=== PATIENT | female | born 1995 | race Caucasian/White ===

== ENCOUNTER 2023-12-28 11:14 | Emergency (ER) | payer OTHER, SELFPAY ==
[2023-12-28 11:16] VITALS: BP 112/76
[2023-12-28 12:09] VITALS: BMI 25.2
--- NOTE | 2023-12-28 12:18 | ED.GENMED ---
History of Present Illness
General
Chief Complaint: Abdominal Symptoms
Source: patient and family
Exam Limitations: none
Time Seen by Provider: 12/28/23 11:36
Nursing documentation reviewed up to this point in time: agreed with
History of Present Illness
History of Present Illness:
Patient is a 28-year-old female presents to the emergency department with liquidy diarrhea has been ongoing for the past 3 days. Patient had at least 10 episodes this morning prior to coming to the ER. Patient denies any hematochezia, melena or
mucus. Patient states it is liquidy and explosive. 4 days ago the patient thought maybe she overdid it on magnesium oxide supplement. Patient was on antibiotics a week ago and 1 week ago had sushi. Patient denies travel history or anyone else at
home ill. Patient is nauseous without vomiting. Patient denies abdominal pain but feels mildly bloated. Patient denies fever or chills. Patient's last period was 3 weeks ago. Patient has been taking Bentyl and Imodium without improvement.
Past History
Past History
ED Past Medical History: Asthma and GERD
Social History
Tobacco: Non-smoker
Review of Systems
Review of Systems
All Other Systems: ROS reviewed and negative except as documented in HPI and ROS
Constitutional: Denies fever or chills
EENT: Reports no symptoms
Respiratory: Reports no symptoms
Cardiac: Reports no symptoms
ABD/GI: Reports diarrhea; Denies abdominal pain, nausea, vomiting, bloody stools, black stools or anorexia
: Reports no symptoms
Musculoskeletal: Reports no symptoms
Skin: Reports no symptoms
Neurological: Reports no symptoms
Hematologic/Lymphatic: Reports no symptoms
Psychiatric: Reports no symptoms
Phy Exam
Physical Exam
Physical Exam:
Physical Exam
General: No apparent distress, alert and appropriate, well nourished, mildly dry mucous
HENT: Normocephalic, supple with no lymphadenopathy, no thyromegaly
Eyes: Clear sclera, conjuctiva without injection
Heart: Regular rhythm and rate. No S3, S4. No murmur. No NVD, bruit
Lungs: No respiratory distress, no stridor, lung sounds clear and equal bilaterally, chest wall symmetrical and nontender
Abdomen: Soft, nontender, no organomegaly, no CVA tenderness, BS good
Neuro: Alert and oriented x 3, CN II - XII intact, no motor focality, no cerebellar dysfunction
Skin: no rash
Psychiatric: well kept. interactive and cooperative
Extremities: No edema, cyanosis, tenderness, Good and equal peripheral pulses.
Course
Orders/Labs/Results
Orders:
Orders
12/28/23 11:50
0.9% Sodium Chloride 1000 ml [Nss] 1,000 ml IV BOLUS
12/28/23 11:51
Test Result ONCE
12/28/23 12:16
Complete Blood Count/With Diff Urgent
Comprehensive Metabolic Panel Urgent
HCG, Serum Qualitative Screen Urgent
12/28/23 12:33
STOOL [C difficile Antigen & Toxins] Urgent
[facility] Source: Feces/Stool
Specimen Description:
Date Specimen was Collected: 12/28/23
Time Specimen was Collected: 12:31
Stool Culture Urgent
[facility] Source: Feces/Stool
Specimen Description:
Date Specimen was Collected: 12/28/23
Time Specimen was Collected: 12:31
Stool For WBC Urgent
[facility] Source: ST
Specimen Description:
Date Specimen was Collected: 12/28/23
Time Specimen was Collected: 12:31
Abnormal Lab Results
12/28/23
12:16
WBC 3.1 L 10^3/uL
(4.8-10.8)
RBC 3.69 L 10^6/uL
(4.20-5.40)
Hgb 11.6 L g/dL
(12.0-16.0)
Hct 32.0 L %
(37.0-47.0)
MCH 31.4 H pg
(27.0-31.0)
Absolute Lymphs (auto) 0.8 L 10^3/uL
(1.2-3.4)
Monocytes % 14.4 H %
(1.7-9.3)
Sodium 132 L mmol/L
(135-145)
BUN 4 L mg/dl
(7-17)
Total Protein 6.2 L g/dl
(6.3-8.2)
12/28/23 12:16
12/28/23 12:16
Vital Signs
Initial and Last Documented VS:
Initial Vital Signs
Temp Pulse Resp BP Pulse Ox
99.1 F 77 16 112/76 100
12/28/23 11:16 12/28/23 11:16 12/28/23 11:16 12/28/23 11:16 12/28/23 11:16
Last Documented Vital Signs
Temp Pulse Resp BP Pulse Ox
99.1 F 76 18 95/72 98
12/28/23 11:16 12/28/23 13:46 12/28/23 13:46 12/28/23 13:46 12/28/23 13:46
*Pulse Oximetry
Patient hypoxic: no
*EKG
Interpreted by ED Provider?: NA
*Can Stacker Interpretation
Rate: Can Stacker- N/A
*Critical Care Note
Total Time (30-74mins, 75-104mins- exclusive of procedures): Not Applicable
Update Note
Update Note:
Patient is negative for C. difficile. Will have the patient continue Imodium and add in Metamucil.
ED Attending Note
-
Portions of this chart may have been created with voice recognition software.� Occasional wrong word or��sound alike� substitutions may have occurred due to the inherent limitations of voice recognition software.
Discharge Plan
Departure
Patient Disposition: Home (Routine Discharge)
Date of Disposition: 12/28/23
Time of Disposition: 14:19
Patient with high blood pressure during this ER visit?: No
Condition: Good
Covid-19: Not Applicable
Discharge Problem:
Diarrhea, Dehydration
Instructions: Dehydration, Adult (DC), Brooke Diet
Referrals:
Rich Ramos MD [Family Provider] - Follow up in 2-3 days
Activity Restrictions/Additional Instructions:
Continue Imodium and Bentyl. Use Metamucil at least once a day if not twice. Make sure to drink plenty of fluids. Return if developing abdominal pain or fevers.
Interventions
Interventions:
*Risk Screen - Suicide Last Done: 12/28/23 12:28
*General Assessment Last Done: 12/28/23 12:28
*Neglect/Abuse Screening Last Done: 12/28/23 12:28
ED- Fall Risk Assessment Last Done: 12/28/23 12:30
*ED COVID-19 Vaccine History Last Done: 12/28/23 12:28
IW-Nnapuj-Kihgzhnp[facility] Assessment Last Done: 12/28/23 12:30
Discharge Date and Time
Print Language: HUNGARIAN
[2023-12-28] MEDS: NSS 1000 IV (12:19)
[2023-12-28 12:28] LABS: % Basophils 0.3 % (0-2); % Eosinophils 2.2 % (0-6); % Lymphocytes 26.8 % (20.5-51.1); % Monocytes 14.4 % (1.7-9.3); % Neutrophils 56.3 % (42.2-75.2); Absolute Eosinophils 0.1 10^3/uL (0-0.7); Absolute Lymphocytes 0.8 10^3/uL (1.2-3.4); Absolute Monocytes 0.5 10^3/uL (0.1-0.6); Absolute Neutrophils 1.8 10^3/uL (1.4-6.5); Hemoglobin 11.6 g/dL (12.0-16.0); Mean Corp Hgb Conc. 36.3 g/dL (33.0-37.0); Mean Corpuscular Hgb 31.4 pg (27.0-31.0); Mean Corpuscular Volume 86.7 fL (81.0-99.0); Mean Platelet Volume 9.6 fL (7.4-10.4); Nucleated Red Blood Cells % 0 %; Platelet Count 162 10^3/uL (130-400); Red Blood Cell Count 3.69 10^6/uL (4.20-5.40); Red Cell Dist. Width 11.9 % (11.5-14.5); White Blood Cell Count 3.1 10^3/uL (4.8-10.8)
[2023-12-28 12:40] LABS: HCG, Serum Qualitative Screen Negative
[2023-12-28 12:43] LABS: ALT (SGPT) 20 U/L (0-35); AST (SGOT) 28 U/L (14-36); Albumin 3.8 g/dl (3.5-5.0); Alkaline Phosphatase 42 U/L (38-126); Blood Urea Nitrogen 4 mg/dl (7-17); Calcium 8.8 mg/dl (8.4-10.2); Carbon Dioxide 23 mmol/L (22-30); Chloride 103 mmol/L (98-107); Estimated Creatinine Clearance 118 ml/min; Glucose 87 mg/dl (70-99); Potassium 3.8 mmol/L (3.5-5.1); Sodium 132 mmol/L (135-145); Total Bilirubin 0.8 mg/dl (0.2-1.3); Total Protein 6.2 g/dl (6.3-8.2); eGFR > 60.00
[2023-12-28 13:46] VITALS: BP 95/72
[2023-12-28 15:04] VITALS: BP 108/73
== END 2023-12-28 15:05 | disposition home or self-care (01) ==
LOC: EMR 11:14
PROVIDERS: EMERGENCY PHYSICIAN Emergency Medicine; FAMILY PHYSICIAN Internal Medicine
DX: R19.7 Diarrhea, unspecified (principal); E86.0 Dehydration
CPT/HCPCS: 99284; 96360; 80053; 84703; 85025; 87045; 87046; 87324; 87427; 87449; 89055

== ENCOUNTER → 2024-01-10 13:37 | Outpatient (REF) | payer OTHER, SELFPAY | LOC: HWRAD 13:37 | PROVIDERS: ATTENDING PHYSICIAN Surgery Vascular Surgery; FAMILY PHYSICIAN Internal Medicine | DX: Q27.8 Other specified congenital malformations of peripheral vascular system (principal); Q25.47 Right aortic arch | CPT/HCPCS: 71275; 74174; Q9967 ==

== ENCOUNTER → 2024-04-10 06:30 | Day surgery (SDC) | payer OTHER, SELFPAY | LOC: GI 06:30 | PROVIDERS: ATTENDING PHYSICIAN Specialist | DX: R13.10 Dysphagia, unspecified (principal); R12 Heartburn; K22.89 Other specified disease of esophagus; D13.0 Benign neoplasm of esophagus | CPT/HCPCS: 43239; 88305 ==

== ENCOUNTER → 2024-06-22 10:32 | Outpatient (REF) | payer OTHER, SELFPAY | LOC: HWRAD 10:32 | PROVIDERS: ATTENDING PHYSICIAN Obstetrics & Gynecology Gynecology; FAMILY PHYSICIAN Internal Medicine | DX: N83.209 Unspecified ovarian cyst, unspecified side (principal) | CPT/HCPCS: 76830; 76856 ==